=== PATIENT | female | born 1970 | race Caucasian/White ===

== ENCOUNTER 2016-06-17 05:39 | Day surgery (SDC) | payer OTHER ==
[~2016-06-17] VITALS: Ht 162.6 cm; Wt 110.9 kg
[~2016-06-17 05:39] MED LIST: CLOP75TA28 PO; EPIN0.3P2 IJ; GLPZ5T PO; LORA10CA PO; LOSA50TA37 PO; LOV40 SUBQ; MELA1TAB16 PO; METF1000 PO; NPH,100V11 SUBQ; OMEP20CA11 PO; SERT100T9 PO; SIMV40TA5 PO
[2016-06-17] MEDS ORDERED: Lidocaine PF 1% 30 mL Inj ONE (05:40)
[2016-06-17] MEDS ORDERED: fentaNYL-PF 50 mCg/mL 2 mL Inj ONE (05:40)
[2016-06-17] MEDS ORDERED: Propofol 10,000 mCg/mL 20 mL Inj ONE (05:40)
[2016-06-17] MEDS ORDERED: CeFAZolin 2 Gm/50 mL D5W IV Premix IV ONE (06:00)
[2016-06-17] MEDS ORDERED: CeFAZolin Inj 2 GM in Dextrose 5% 50 ML IV SCH (06:00)
[2016-06-17] MEDS ORDERED: PHEN-877 PO (06:44)
[2016-06-17] MEDS ORDERED: ACET-171 PO (06:44)
[2016-06-17] MEDS ORDERED: IBUP200C PO (06:44)
[2016-06-17 06:45] VITALS: BP 126/81; PULSE 93; RESP 16; O2SAT 98
[2016-06-17] MEDS ORDERED: CeFAZolin Inj 2 gm / 50mL D5W IV ONE (07:05)
[2016-06-17] MEDS: Lactated Ringer's 1,000 ML IV SCH ×2 (07:05→07:18)
[2016-06-17] MEDS ORDERED: Lactated Ringer's 1,000 ML IV SCH (07:12)
[2016-06-17] MEDS ORDERED: Lactated Ringer's 500 ML IV PRN (07:12)
--- NOTE | 2016-06-17 07:12 | PCM.HPANE ---
Patient Data Date of Service: Jun 17, 2016 Surgeon Admitting Provider: Attending Provider:López Moran MD Primary Care Physician:Ishaan Castellanos MD Other Provider:Nicole Price Anesthesia Reason for Visit Left Trigger Thumb Ht/WT & BMI Height (Feet): 5 Height (Inches): 4 Weight (Kilograms): 110.91 Body Mass Index 0.00 Allergies Coded Allergies: codeine (Verified Allergy, Unknown, Agitation, 02/18/15) lisinopril (Verified Allergy, Unknown, 06/14/16) Uncoded Allergies: BEE STINGS (Allergy, Unknown, 06/14/16) Past Anesthesia History Anesthesia History: Denies:: Abnormal Airway, Anesthesia Reactions, Difficult Intubation, Fam Anesthesia Reaction, Fam Malignant Hypertherm, Malignant Hyperthermia Diabetes History Hx Diabetes?: Yes Type of Diabetes: Type II Glycemic Control: Insulin & Oral Medication Current Bedside Blood Glucose: 174 MRSA MRSA: No Medications Blood Thinner: Plavix (off for 10 days), Lovenox Hypertension Medication: Yes Home Meds Incl Beta Todd: No Reported Medications Ibuprofen 200 Mg Kxsmekw008 Mg PO QID PRN For Pain Ref 0 06/17/16 Phenylephrine HCl (Sudafed PE)10 Mg Tablet5 Mg PO PRN sinus pain 06/17/16 Acetaminophen 500 Mg Lwivny993 Mg PO Q6H PRN For Fever 06/17/16 Melatonin/Pyridoxine (Melatonin 5 mg Tablet)1 Each Tablet1 Each PO HS PRN Insomnia 06/14/16 Loratadine (Claritin)10 Mg Qyjrova71 Mg PO DAILY PRN seasonal allergy Ref 0 06/14/16 Epinephrine (Epipen 2-Zion)0.3 Mg/0.3 Ml Auto.injct0.3 Mg IJ PRN For Anaphyllaxis 06/14/16 Sertraline HCl (Sertraline)100 Mg Kovlbd795 Mg PO DAILY 30 Days Ref 0 06/14/16 Omeprazole 20 Mg Capsule.dr20 Mg PO DAILY Ref 0 06/14/16 Simvastatin 40 Mg Gypaey11 Mg PO HS 30 Days Ref 0 06/14/16 Losartan Potassium 50 Mg Uxznvb75 Mg PO DAILY 06/14/16 Glipizide 5 Mg Tablet5 Mg PO BID 30 Days 06/14/16 Metformin (Glucophage)1,000 Mg Tablet1,000 Mg PO BID Ref 0 06/14/16 NPH, Human Insulin Isophane (HUMulin-N U100 Insulin Vial)100 Unit/1 Ml Vial40 Unit SUBQ QPM #1 VIAL Ref 0 06/14/16 Enoxaparin (Lovenox)40 Mg/0.4 Ml Lhdcbzm31 Mg SUBQ DAILY Ref 0 06/14/16 Clopidogrel 75 Mg Cntvsz65 Mg PO DAILY Ref 0 06/14/16 Discontinued Reported Medications Omeprazole 20 Mg Capsule.dr20 Mg PO BID Ref 0 05/06/15 Simvastatin 40 Mg Dmzymc09 Mg PO HS 30 Days Ref 0 05/05/15 Sertraline HCl (Sertraline)100 Mg Kyenfu469 Mg PO DAILY 30 Days Ref 0 05/05/15 Metformin 500 Mg Njsbao275 Mg PO BID Ref 0 05/05/15 Losartan Potassium 50 Mg Bupmoh71 Mg PO DAILY 05/05/15 NPH, Human Insulin Isophane (HUMulin-N U100 Insulin Vial)100 Unit/1 Ml Vial2 Unit SUBQ HS PRN diabetes #1 VIAL Ref 0 05/05/15 Glipizide ER 5 Mg Tab.er.245 Mg PO DAILY 05/05/15 Clopidogrel 75 Mg Ietrlj09 Mg PO DAILY Ref 0 05/05/15 History HEENT History: Denies:: Abnormal Airway Cataracts Difficult Intubation Dysphagia Glaucoma Hearing Problem Sinus Problem TMJ Hx of Heart Problems?: Yes Cardiovascular History: Positive for:: Hypertension Denies:: AICD Abdominal Aortic Aneurism Chest Pain Congestive Heart Failure Coronary Artery Disease Heart Murmur Irregular Heartbeat Pacemaker Peripheral Vascular Rheumatic Fever Thrombophlebitis Valvular Heart Disease Hx of Respiratory Problem?: No Respiratory History: Denies:: Asthma COPD Emphysema Oxygen Administration Pneumonia (remote hx of- 1997) Tuberculosis Use of C-PAP Machine Use of Inhalers / NEBS Hx Neurologic Problems?: Yes Neurological History: Positive for:: CVA (2 strokes at age 40 - no residual, followed by PCP) Denies:: Dementia Dizziness Headaches Multiple Sclerosis Parkinson's Disease Seizures TIA Hx of GI Problems?: Yes Gastrointestinal History: Positive for:: Gall Bladder Disease (removed) Gastroesphageal Reflux Heartburn Denies:: Cirrhosis Diverticulitis Gastrointestinal Bleeding Hepatitis Hiatal Hernia Liver Disease Rectal Bleeding Hx of Problems?: No Genitourinary History: Denies:: Kidney Stones Urinary Tract Infection Female Hx: Denies:: Currently Problems with Breasts? Skin History: Denies:: History Skin Disorders? Pressure Ulcers Hx Musculoskeletal Problems?: Yes Musculoskeletal History: Positive for:: Musculoskeletal Trauma (left trigger thumb current admission problem) Denies:: Back Injury Fibromyalgia Joint Replacement Myasthenia Gravis Osteoarthritis Rheumatoid Arthritis Systemic Lupus Hx of Psycho/Social Problems?: Yes Psycho Social History: Positive for:: Hx Depression Hx Surgeries?: Yes (DELMI, T&A, ) Hx Any Other Health Problems?: Yes Other History: Denies:: Cancer Thyroid Disease History Blood Transfusions: Positive for:: Accept Blood Products? Denies:: Blood Transfusions Hx Diabetes: YesBedside Blood Glucose: 174 Hx Alcohol Use: YesAlcoholic Drinks Per Day: once monthly, rareHx Substance Use: No Smoking Status: Never Smoker Have You Smoked inLast 12 mo: No Stop/Bang Treated for Sleep Apnea?: No Do You Have a CPAP Machine?: No S-Snoring: Do You Snore Loudly: Yes T-Tired: feel tired, fatigued: Yes O-Obsered: Observed not breath: No P-Blood Pressure: treated: Yes B- Body Mass Index > 35 kg/m2: Yes A- Age over 50: No N- Neck Large Circumference: No G- Gender Male: No RADHA Total Score: 4 RADHA Risk Assessment: High Risk, =/>3 Yes Risk Assessment Category Category 1A: Patient has history of documented sleep apnea, and HAS NOT received any narcotic, sedative or anesthesia administration during this stay. Category 1B: Patient has history of documented sleep apnea, and HAS received any narcotic , sedative or anesthesia administration during this stay Category 2: Patient has SUSPECTED Obstructive Sleep Apnea, and HAS received any narcotic , sedative or anesthesia administration during this stay. Category 3: Patient has SUSPECTED Obstructive Sleep Apnea and HAS NOT received narcotic, sedative or anesthesia administration during this stay. Category 4: Outpatient in Procedural Areas with known sleep apnea or who screen positive for High Risk via the STOP/BANG questionnaire. Exam Exam General Appearance: Alert, Oriented X3, Cooperative HEENT/AIRWAY: MP 4, Neck Movement (Full), Mouth Opening (Smaller, recessed jaw) Lungs: Clear to Auscultation, Normal Air Movement Heart: Regular Rate/Rhythm, Normal S1, Normal S2 Meds/Labs/Diagnostics Bedside Blood Glucose: 174 Plan Impression Patient chart reviewed, patient interviewed and anesthestic plan with risks, benefits, and alternatives discussed, and informed consent obtained. NPO Status: [id number] 06/16 ASA Physical Status: ASA3 Severe Disease Anesthetic Plan: MAC Bene/Risks/Altern/Consents: Yes HP Complete Prior to Induction: Yes El Leahy MD Jun 17, 2016 06:55
[2016-06-17] MEDS ORDERED: Labetalol 5 mg/mL 4 mL Inj IV PRN (07:15)
[2016-06-17] MEDS ORDERED: EPHEDrine Sulfate 50 mg/mL Inj IVPUSH PRN (07:15)
[2016-06-17] MEDS ORDERED: fentaNYL-PF 50 mCg/mL 2 mL Inj IVPUSH PRN (07:15)
[2016-06-17] MEDS ORDERED: Atropine 0.4 mg/mL Inj IVPUSH PRN (07:15)
[2016-06-17] MEDS ORDERED: HYDROmorphone 1 mg/mL Inj IVPUSH PRN (07:15)
[2016-06-17] MEDS ORDERED: Ondansetron 2 mg/mL 2 mL Inj IVPUSH PRN (07:15)
[2016-06-17] MEDS ORDERED: Phenylephrine 10,000 mCg/mL Inj IVPUSH PRN (07:15)
[2016-06-17] MEDS ORDERED: hydrALAZINE 20 mg/mL Inj IVPUSH PRN (07:15)
[2016-06-17] MEDS ORDERED: MetoCLOpramide 5 mg/mL 2 mL Inj IVPUSH PRN (07:15)
[2016-06-17] MEDS ORDERED: Dexamethasone 4 mg/mL Inj IVPUSH PRN (07:15)
[2016-06-17] MEDS ORDERED: Bupivacaine-MPF 0.5% 30 mL Inj INFILTRATE ONE (07:35)
[2016-06-17 08:17] VITALS: BP 120/61; PULSE 85; RESP 16; O2SAT 97
[2016-06-17 08:20] VITALS: BP 124/63; PULSE 84; RESP 12; O2SAT 96
[2016-06-17] MEDS ORDERED: oxyCODONE-Acetamin 5-325 mg Tablet PO PRN (08:25)
--- NOTE | 2016-06-17 08:27 | PCM.ANEP1 ---
Post Anesthesia Phase 1 PACU Phase 1 Assessment Date of Service: Jun 17, 2016 Vital Signs Vital Signs Date Time Temp Pulse Resp B/P Pulse Ox O2 Delivery O2 Flow Rate FiO2 06/17/16 08:20 84 12 124/63 96 Room Air 06/17/16 08:17 36.3 85 16 120/61 97 Room Air 06/17/16 06:45 36.1 93 16 126/81 98 Room Air Anesthetic Administered: MAC Level of Alertness: Awake, talking SWARTZ's with Equal Strength: Yes Pain: No Nausea or Vomiting: No Oxygen Delivery: Room Air Lungs: Normal Air Movement El Leahy MD Jun 17, 2016 08:27
--- NOTE | 2016-06-17 08:56 | OP ---
[address] [address] OPERATIVE REPORT PATIENT: TAMAR NORMAN : 1970 MR#: [id number] ADMIT: 06/17/2016 JOB ID: [id number] DATE OF SURGERY: 06/17/2016 PREOPERATIVE DIAGNOSIS(ES): Left trigger thumb, ICD-10 code M65.312. POSTOPERATIVE DIAGNOSIS(ES): Left trigger thumb, ICD-10 code M65.312. PROCEDURE: Left trigger thumb release, CPT code 98472. SURGEON: López Moran MD. ASSISTING: None. ANESTHESIA: IV sedation, with metacarpal nerve block performed by surgeon. COMPLICATIONS: None. ESTIMATED BLOOD LOSS: 2 mL. DRAINS: None. SPECIMEN: No specimen to Pathology. SPONGE AND NEEDLE COUNT: Correct. INDICATIONS: This is a 46-year-old, right-hand dominant female with a persistent left trigger thumb. The patient has failed conservative treatment. DESCRIPTION OF PROCEDURE: Under adequate IV sedation, I performed a metacarpal nerve block on the left for the procedure. A well-padded tourniquet was applied to the left upper extremity. Left arm was prepped and draped in a sterile fashion. Time-out was called prior to me performing the metacarpal nerve block. The arm was elevated and exsanguinated, tourniquet inflated to 250 mmHg. A small horizontal incision was fashioned just at the proximal edge of the A1 julianna. Care was taken to protect the radial and ulnar digital nerves to the thumb, as well as the digital vessels. Proximal portion of the A1 julianna was identified. The julianna was sharply incised. Care was taken to protect the flexor tendon. Care was also taken to protect the oblique julianna more distally. The patient was then asked to move her thumb. She was able to actively flex the thumb with no triggering. The wound was irrigated with saline. Tourniquet released. Minimal hemostasis required. Skin reapproximated with interrupted horizontal mattress sutures of 4-0 nylon. Xeroform and dry sterile bulky dressing were applied. The patient was taken to recovery room in stable condition. Sponge and needle count correct. No specimen to Pathology. PLAN: The patient is to keep the dressing clean and dry. She may return to work after one week. She works at the [employer] and just does limited typing and mainly type with the right hand. I will see her back in followup in two weeks for suture removal. CC: [facility] CC: Sima Malone
[2016-06-17 09:08] VITALS: BP 126/54; PULSE 80; RESP 14; O2SAT 96
--- NOTE | 2016-06-17 09:22 | PCM.ANEP2 ---
Post Anesthesia Evaluation ASA/CMS Post Anesthesia Date of Service: Jun 17, 2016 VS in Patient's Normal Range?: Yes Resp Stable; Airway Patent?: Yes CV Function & Hydration Stable: Yes Mental Status Recovered?: Yes Pain control Satisfactory?: Yes N/V Control Satisfactory?: Yes El Leahy MD Jun 17, 2016 09:22
== END 2016-06-17 23:59 | disposition home or self-care (01) ==
LOC: SAS 05:39
PROVIDERS: ATTEND Orthopaedic Surgery
DX: M65.312 Trigger thumb, left thumb (principal); E11.9 Type 2 diabetes mellitus without complications; I69.319 Unspecified symptoms and signs involving cognitive functions following cerebral infarction; I69.398 Other sequelae of cerebral infarction; Z79.84 Long term (current) use of oral hypoglycemic drugs; Z79.02 Long term (current) use of antithrombotics/antiplatelets
CPT/HCPCS: 26055; J0690; J2250; J3010; J7120